=== PATIENT | female | born 1995 | race Caucasian/White ===

== ENCOUNTER 2016-12-18 06:55 | Inpatient (IN) | payer BC ==
[~2016-12-18] VITALS: Ht 157.5 cm; Wt 79.5 kg
[2016-12-18 07:17] VITALS: BP 136/61; PULSE 115; RESP 19; Ht 157.5 cm; Wt 79.5 kg
--- NOTE | 2016-12-18 07:17 | TRIAGE ---
OB Triage Datetime Report Generated by CPN: 12/18/2016 07:17 Datetime: 12/18/2016 07:16 Assessment Type: Triage Maternal Assessment Level of Consciousness: Fully Conscious DTR's/Clonus: DTRs 2+; No Clonus Headache: Denies Blurred Vision: No Respiratory Effort: Unlabored; Regular Rhythm; Equal Expansion Breath Sounds, Left: Clear and Equal Breath Sounds, Right: Clear and Equal Nausea/Vomiting: Denies RUQ Epigastric Pain: Denies Lower Extremities Edema: None Degree: None Upper Extremities Edema: None Degree: None Facial Edema: None Fall Risk Assessment History of Falling: (0) No Secondary Diagnosis: (0) No Ambulatory Aid: (0) Bedrest/Nurse Assist IV Therapy: (0) No Gait: (0) Normal/Bedrest/Immobile Mental Status: (0) Oriented to Own Ability Fall Score: 0 Fall Risk Score Definition: No Risk: No action required Datetime: 12/18/2016 07:15 EGA: 40.4 Datetime: 12/18/2016 06:55 Time of Arrival: 12/18/2016 06:55 Arrived By: Ambulatory Arrived From: Home Chief Complaint: PT CAME IN C/O SROM AT 2330 THIS AM AND UC'S Movement: Present Contractions: Occasional Rupture of Membranes: Ruptured Vaginal Bleeding: None Vaginal Discharge: Denies Recent Sexual Intercouse: Denies Abdominal Trauma: Not Applicable Patient Complaints: Contractions Additional Patient Complaints: NONE Initial Plan: MONITOR AND VE
--- NOTE | 2016-12-18 08:07 | RADRPT ---
PROCEDURE: US OB. CLINICAL INDICATION: Labor TECHNIQUE: Multiple sonographic images of the pelvis were obtained. Transabdominal imaging only w as performed. The images were reviewed on a PACS workstation. COMPARISON: No prior studies are available for comparison. FINDINGS: There is a single live intrauterine gestation. Cardiac activity is present with 166 beats per minut e. position is cephalic. Measurements were made in order to determine age. The results are as follows: BPD = 8.92 cm HC = 32.35 cm AC = 34.05 cm FL = 6.76 cm. Estimated gestational age of approximately 36 weeks 3 days. The estimated date of delivery is 01/12/2017. The EFW = 3043 g, 7.7 %ile. The placenta is left lateral. There is no evidence for an abruption or placenta previa. There are no adnexal masses. IMPRESSION: 1. Single live intrauterine gestation of approximately 36 weeks 3 days, by ultrasound criteria. 2. The estimated date of delivery is 01/12/2017. 3. The estimated weight is 3043 g, 7.7 %ile. RPTAT: HH .Mica Crandall MD, Date Time Electronically viewed and signed by .Mica Crandall MD, on 12/18/2016 08:06 .G/
[2016-12-18] MEDS ORDERED: LACTATED RINGER'S 1,000 ML IV PRN (08:10)
[2016-12-18 08:20] LABS: ADD SCAN DIFF NO
[2016-12-18 08:25] LABS: BASOPHIL # 0.1 10^3/ul (0.0-0.1); BASOPHILS % 0.3 % (0.0-2.0); EOSINOPHILS # 0.3 10^3/ul (0.0-0.5); EOSINOPHILS % 1.7 % (0.0-7.0); HEMOGLOBIN 12.9 g/dl (12.0-16.0); LYMPHOCYTES # 2.4 10^3/ul (0.8-2.9); LYMPHOCYTES % 16.1 % (15.0-51.0); MEAN CORPUSCULAR HEMOGLOBIN 30.1 pg (29.0-33.0); MEAN CORPUSCULAR HGB CONC 33.9 g/dl (32.0-37.0); MEAN CORPUSCULAR VOLUME 88.6 fl (82.0-101.0); MEAN PLATELET VOLUME 9.9 fl (7.4-10.4); MONOCYTE # 0.8 10^3/ul (0.3-0.9); MONOCYTES % 5.4 % (0.0-11.0); NEUTROPHIL # 11.2 10^3/ul (1.6-7.5); NEUTROPHILS % 75.2 % (39.0-77.0); PLATELET COUNT 379 10^3/UL (140-415); RED BLOOD COUNT 4.29 10^6/ul (4.20-5.40); RED CELL DISTRIBUTION WIDTH 14.2 % (11.5-14.5); WHITE BLOOD COUNT 14.9 10^3/ul (4.8-10.8)
[2016-12-18] MEDS: LACTATED RINGER'S 1,000 ML IV SCH ×3 (08:29→21:00)
[2016-12-18] MEDS ORDERED: LIDOCAINE 1% (MPF) 30 ML INJ INJ PRN (08:30)
[2016-12-18] MEDS ORDERED: BUTORPHANOL 2 MG INJ IV PRN (08:30)
[2016-12-18] MEDS ORDERED: AMPICILLIN 2 GM/NS (PMX) 100 ML IV ONE ×2 (08:30→21:00)
[2016-12-18] MEDS ORDERED: METHYLERGONOVINE 0.2 MG INJ IM PRN (08:30)
[2016-12-18] MEDS ORDERED: OXYTOCIN 30 UNITS/LR 500 ML IV PRN (08:30)
[2016-12-18] MEDS ORDERED: IBUPROFEN 600 MG TAB PO PRN (08:30)
[2016-12-18] MEDS ORDERED: CARBOPROST 250 MCG INJ IM PRN (08:30)
[2016-12-18] MEDS ORDERED: MISOPROSTOL 200 MCG TAB PR PRN (08:30)
[2016-12-18] MEDS ORDERED: OXYTOCIN 30 UNITS/LR 500 ML IV SCH ×3 (08:30→09:30)
[2016-12-18 08:40] LABS: INR 0.87; PROTIME 11.8 Sec (12.2-14.2); PT RATIO 0.9
[2016-12-18 08:41] LABS: PARTIAL THROMBOPLASTIN TIME 26.3 Sec (25.0-35.0)
--- NOTE | 2016-12-18 10:10 | PREOPHP ---
DATE OF ADMISSION: 12/18/2016 HISTORY OF PRESENT ILLNESS: Ms. Kalina Elkins is a 21-year-old 1, para 0, EDC 12/14/2016 in trauterine at 40 weeks and 4 days gestational age, presented to triage complaining of rupt ure of membranes since 11:00 last night. She denies any vaginal bleeding. Her care took marysol harrington at [facility]. MEDICAL HISTORY: None. MEDICATIONS: vitamins. PAST SURGICAL HISTORY: None. OBSTETRIC HISTORY: Primigravid. GYNECOLOGIC HISTORY: 12, regular 3 to 4 days. Denies any sexually transmitted disease. Sexually a ctive with 1 partner. SOCIAL HISTORY: Denies any smoking, drugs or alcohol. FAMILY HISTORY: None. PHYSICAL EXAMINATION: HEENT: Within normal. LUNGS: CTA bilateral. CARDIOVASCULAR: S1, S2, regular rhythm. ABDOMEN: Gravid, nontender. EXTREMITIES: Negative edema. No calf tenderness. PELVIC: Vaginal exam 270 -3. heart tracing category 1, toco, regular contractions. ASSESSMENT: Intrauterine at term in labor with spontaneous rupture of membrane. PLAN: Ultrasound for estimated weight and consider Pitocin as needed. Dictated By: LESLIE RODRÍGUEZ/TIFFANIE Conf#: [id number] DID#: [id number]
[2016-12-18] MEDS ORDERED: AMPICILLIN 1 GM/NS (PMX) 50 ML IV SCH (11:30)
[2016-12-18] MEDS ORDERED: FENTAnyl 2MCG/ML-ROPIV 0.2% 100 ML ONE (19:40)
[2016-12-18] MEDS ORDERED: ESMOLOL 10 ML ONE (19:51)
[2016-12-18] MEDS ORDERED: PHENYLephrine (100 MCG/ML) 5ML SYG ONE (19:52)
[2016-12-18] MEDS ORDERED: NALOXONE (0.4 MG/ML) INJ IV PRN (20:30)
[2016-12-18] MEDS ORDERED: FENTAnyl 2MCG/ML-ROPIV 0.2% 100 ML BAG EPI SCH (20:30)
[2016-12-19] MEDS: AMPICILLIN 1 GM/NS (PMX) 50 ML IV SCH ×2 (01:34→05:52)
[2016-12-19] MEDS: LACTATED RINGER'S 1,000 ML IV SCH ×2 (02:30→05:22)
--- NOTE | 2016-12-19 07:51 | LDN ---
Date/Time of Note Date/Time of Note DATE: 12/19/16 TIME: 07:50 Delivery Summary Placenta Delivered: Spontaneously Meconium: Thick Perineum intact?: Yes Perineal laceration repair: right labia minora laceration repair with 3-0 chromic Anesthesia type: Epidural Estimated blood loss: 200 Sponge & Needle done & correct: Yes All needle counts correct: Yes Any foreign bodies felt in the: No Problems: Delivery Information Sex Infant Sex: male Apgars 1 Minute: 8 5 Minute: 9 Suctioning Nose & mouth suctioned at ralph: No Delee suction performed: No Umbilical Cord Umbilical cord with: 3 Vessels Cord Blood was obtained: Yes LESLIE MCCRAY MD Dec 19, 2016 07:51
[2016-12-19] MEDS ORDERED: CARBOPROST 250 MCG INJ IM PRN (08:00)
[2016-12-19] MEDS ORDERED: MISOPROSTOL 200 MCG TAB PR PRN (08:00)
[2016-12-19] MEDS ORDERED: WITCH HAZEL/GLYCERIN PAD PR PRN (08:00)
[2016-12-19] MEDS ORDERED: OXYTOCIN 30 UNITS/LR 500 ML IV PRN (08:00)
[2016-12-19] MEDS ORDERED: METHYLERGONOVINE 0.2 MG INJ IM PRN (08:00)
[2016-12-19] MEDS ORDERED: DIBUCAINE 1% 30 GM OINT PR PRN (08:00)
[2016-12-19] MEDS ORDERED: LANOLIN 7 GM TUBE TOP PRN (08:00)
[2016-12-19] MEDS ORDERED: BENZOCAINE 20% 56 ML SPRAY TOP PRN (08:00)
[2016-12-19] MEDS ORDERED: OXYCODONE/ASPIRIN (4.88/325) TAB PO PRN ×2 (08:00)
--- NOTE | 2016-12-19 08:35 | DELSUM ---
Delivery Summary A-C Datetime Report Generated by CPN: 12/19/2016 08:35 DELIVERY PERSONNEL Tooth Cutter: Niharika Gregoria MATERNAL INFORMATION Delivery Anesthesia: Epidural Medications in Delivery: 30 UNITS PITOCIN IN 500 ML LR Estimated Blood Loss (ml): 200 Placenta Cultured: No Maternal Complications: None LABOR SUMMARY EDC: 12/14/2016 00:00 No. Babies in Womb: 1 Attempted: No Labor Anesthesia: Epidural LABOR INFORMATION Reason for Induction: Not Applicable Onset of Labor: 12/18/2016 06:00 Complete Dilatation: 12/19/2016 06:52 Oxytocin: Augmentation Group B Beta Strep: Negative Antibiotics # of Doses: 3 Antibiotics Time of Last Dose: 12/19/2016 05:52 Steroids Given: None Reason Steroids Not Administered: Not Applicable MEMBRANES Membranes Rupture Method: Spontaneous Membranes Rupture Method: Spontaneous Membranes Rupture Method: Spontaneous Rupture of Membranes: 12/17/2016 23:30 Rupture of Membranes: 12/17/2016 23:30 Length of Rupture (hr): 32.13 Length of Rupture (hr): 32.13 Amniotic Fluid Color: Light Meconium Amniotic Fluid Color: Clear Amniotic Fluid Color: Clear Amniotic Fluid Amount: Small Amniotic Fluid Amount: Small Amniotic Fluid Odor: None Amniotic Fluid Odor: None STAGES OF LABOR Stage 1 hr: 24 Stage 1 min: 52 Stage 2 hr: 0 Stage 2 min: 46 Stage 3 hr: 0 Stage 3 min: 2 Total Time in Labor hr: 25 Total Time in Labor min: 40 VAGINAL DELIVERY Episiotomy: None Laceration Extension: N/A Laceration Type: None Other Laceration: MINOR LABIAL ABRASION Laceration Repair: Yes Initial Vag Sponge Count: 20 Final Vag Sponge Count: 20 Initial Vag Sharps Count: 1 Final Vag Sharps Count: 1 Sponge Count Correct: Yes Sharps Count Correct: Yes BABY A INFORMATION Infant Delivery Date/Time: 12/19/2016 07:38 Method of Delivery: Vaginal Born in Route : No : N/A Forceps: N/A Vacuum Extraction: N/A Shoulder Dystocia : N/A SHOULDER DYSTOCIA BABY A Delivery Date/Time: 12/19/2016 07:38 PRESENTATION/POSITION BABY A Presentation: Cephalic Presentation: Cephalic Presentation: Cephalic Presentation: Cephalic Cephalic Presentation: Vertex Vertex Position: Right Occipital Anterior Breech Presentation: N/A PLACENTA INFORMATION BABY A Placenta Delivery Time : 12/19/2016 07:40 Placenta Method of Delivery: Spontaneous Placenta Status: Delivered SCORES BABY A Heart Rate 1 min: >100 bpm Resp Effort 1 min: Good Cry Reflex Irritability 1 min: Cough/Sneeze/Pulls Away Muscle Tone 1 min: Active Motion Color 1 min: Blue/Pale SCORE 1 MIN: 8 Heart Rate 5 min: >100 bpm Resp Effort 5 min: Good Cry Reflex Irritability 5 min: Cough/Sneeze/Pulls Away Muscle Tone 5 min: Active Motion Color 5 min: Body [place], Extremit Blue SCORE 5 MIN: 9 INFORMATION BABY A Gestational Age at Delivery: 40.5 Gestational Status: Full Term- 39- 40.6 Weeks Outcome : Liveborn Infant Condition : Stable Sex: Male IDENTIFICATION/MEDS BABY A ID Band Number: [id number] ID Band Location: Right Leg; Left Arm Sensor Applied: Yes Sensor Number: [id number] Sensor Location : Cord Clamp Vitamin K Given : Not Given Erythromycin Given: Not Given WEIGHT/LENGTH BABY A Birthweight (gm): 2965 Weight (lb): 6 Weight (oz): 9 Infant Length (in): 19.25 Infant Length (cm): 48.90 CORD INFORMATION BABY A No. Cord Vessels: 3 Nuchal Cord : N/A Cord Blood Taken: Yes Infant Suction: Mouth; Nose ASSESSMENT BABY A Infant Complications: Meconium Physical Findings at Delivery: Molding of the Head; Other Physical Findings- Other: BLUISH BIRTHMARK ON LEFT HAND Infant Respirations: Appears Normal Filenet P8 Developer/ALS Called : No Care By: Rachele KHAN Transferred To: Remains with Mother
[2016-12-19] MEDS ORDERED: OXYTOCIN 30 UNITS/LR 500 ML IV SCH (09:00)
[2016-12-19 10:25] VITALS: BP 121/73; PULSE 65; RESP 19
[2016-12-19 12:00] VITALS: BP 119/60; PULSE 87; RESP 18
[2016-12-19] MEDS: LACTATED RINGER'S 1,000 ML IV* SCH ×3 (12:03→23:49)
[2016-12-19] MEDS: IBUPROFEN 600 MG TAB PO SCH ×3 (12:03→23:49)
[2016-12-19 15:40] VITALS: BP 106/61; PULSE 91; RESP 18
[2016-12-19 20:00] VITALS: BP 105/54; PULSE 72; RESP 18
[2016-12-20] VITALS: BP 108/62; PULSE 86; RESP 18
[2016-12-20 04:00] VITALS: BP 117/65; PULSE 85; RESP 20
[2016-12-20] MEDS: IBUPROFEN 600 MG TAB PO SCH ×3 (05:37→18:04)
[2016-12-20] MEDS: LACTATED RINGER'S 1,000 ML IV* SCH (07:51)
[2016-12-20 08:00] VITALS: BP 115/75; PULSE 81; RESP 18
[2016-12-20 08:05] LABS: ADD SCAN DIFF NO
[2016-12-20 08:42] LABS: BASOPHIL # 0.1 10^3/ul (0.0-0.1); BASOPHILS % 0.2 % (0.0-2.0); EOSINOPHILS # 0.4 10^3/ul (0.0-0.5); EOSINOPHILS % 1.8 % (0.0-7.0); HEMATOCRIT 31.6 % (37.0-47.0); HEMOGLOBIN 10.2 g/dl (12.0-16.0); LYMPHOCYTES # 3.5 10^3/ul (0.8-2.9); LYMPHOCYTES % 17.1 % (15.0-51.0); MEAN CORPUSCULAR HEMOGLOBIN 29.4 pg (29.0-33.0); MEAN CORPUSCULAR HGB CONC 32.3 g/dl (32.0-37.0); MEAN CORPUSCULAR VOLUME 91.1 fl (82.0-101.0); MEAN PLATELET VOLUME 9.7 fl (7.4-10.4); MONOCYTE # 1.1 10^3/ul (0.3-0.9); MONOCYTES % 5.3 % (0.0-11.0); NEUTROPHIL # 15.3 10^3/ul (1.6-7.5); NEUTROPHILS % 74.5 % (39.0-77.0); PLATELET COUNT 306 10^3/UL (140-415); RED BLOOD COUNT 3.47 10^6/ul (4.20-5.40); RED CELL DISTRIBUTION WIDTH 14.9 % (11.5-14.5); WHITE BLOOD COUNT 20.6 10^3/ul (4.8-10.8)
--- NOTE | 2016-12-20 12:37 | QN ---
Documentation Comment attending note PPD 1 patient seen and evaluated no complaints vs stable afebrile ab soft nt uterine fundus below umbillicus extremity no edema no calf tenderness a/ s/p vaginal delivery PPD 1 stable elevated wbc p/ repeat cbc in am LESLIE MCCRAY MD Dec 20, 2016 12:37
[2016-12-20 16:00] VITALS: BP 119/80; PULSE 70; RESP 18
[2016-12-20 20:15] VITALS: BP 114/71; PULSE 77; RESP 20
[2016-12-21] MEDS: IBUPROFEN 600 MG TAB PO SCH ×4 (00:19→17:26)
[2016-12-21 04:07] VITALS: BP 119/69; PULSE 70; RESP 18
[2016-12-21 07:55] LABS: ADD SCAN DIFF NO
[2016-12-21 07:58] LABS: BASOPHIL # 0.1 10^3/ul (0.0-0.1); BASOPHILS % 0.4 % (0.0-2.0); EOSINOPHILS # 0.5 10^3/ul (0.0-0.5); EOSINOPHILS % 3.7 % (0.0-7.0); HEMATOCRIT 33.3 % (37.0-47.0); HEMOGLOBIN 11.1 g/dl (12.0-16.0); LYMPHOCYTES # 3.7 10^3/ul (0.8-2.9); LYMPHOCYTES % 28.6 % (15.0-51.0); MEAN CORPUSCULAR HEMOGLOBIN 29.8 pg (29.0-33.0); MEAN CORPUSCULAR HGB CONC 33.3 g/dl (32.0-37.0); MEAN CORPUSCULAR VOLUME 89.5 fl (82.0-101.0); MEAN PLATELET VOLUME 9.4 fl (7.4-10.4); MONOCYTE # 0.7 10^3/ul (0.3-0.9); MONOCYTES % 5.1 % (0.0-11.0); NEUTROPHIL # 7.9 10^3/ul (1.6-7.5); NEUTROPHILS % 61.3 % (39.0-77.0); PLATELET COUNT 313 10^3/UL (140-415); RED BLOOD COUNT 3.72 10^6/ul (4.20-5.40); RED CELL DISTRIBUTION WIDTH 14.4 % (11.5-14.5); WHITE BLOOD COUNT 12.9 10^3/ul (4.8-10.8)
[2016-12-21 08:15] VITALS: BP 119/54; PULSE 83; RESP 18
--- NOTE | 2016-12-21 09:29 | PD.PPDC ---
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
--- NOTE | 2016-12-21 11:59 | DS ---
DATE OF ADMISSION: 12/18/2016 DATE OF DISCHARGE: 12/21/2016 PRIMARY DIAGNOSIS: A 21-year-old 1, para 0, intrauterine at term in labor. PROCEDURE: Normal spontaneous vaginal delivery. CONDITION ON DISCHARGE: Stable. ACTIVITY: None per vagina. No heavy lifting x6 weeks. DIET: Regular. MEDICATIONS ON DISCHARGE Motrin. DISCHARGE SUMMARY: A 21-year-old 1, para 1, status post normal spontaneous vaginal delivery on 12/19/2016. She had a viable male, Apgars 8 and 9, respectively at 1 and 5 minutes. Uneventful day 1 and 2. She will be discharged on day 2. She is ambulating, tolerating diet, positive flatulence, positive bowel movement. She will follow up in the office in 3 weeks fo r /postop care. Dictated By: LESLIE RODRÍGUEZ/TIFFANIE Conf#: [id number] DID#: [id number]
[2016-12-21 16:05] VITALS: BP 118/56; RESP 18
[2016-12-21 16:42] VITALS: BP 116/60; RESP 18
== END 2016-12-21 17:45 | disposition home or self-care (01) | DRG 775 ==
LOC: OBT 06:55 → L-D 06:55 → OBT 07:11 → L-D 07:11 → PP1 12-19 10:12
PROVIDERS: ADMIT Obstetrics & Gynecology; ATTEND Obstetrics & Gynecology
PROC: 10E0XZZ Delivery of Products of Conception, External Approach (ICD-10-PCS; principal; 2016-12-19)
PROC: 0HQ9XZZ Repair Perineum Skin, External Approach (ICD-10-PCS; 2016-12-19)
DX: O48.0 Post-term pregnancy (principal); O70.0 First degree perineal laceration during delivery; Z3A.40 40 weeks gestation of pregnancy; Z37.0 Single live birth
CPT/HCPCS: 62319; 76815; 85025; 85610; 85730; 86592; 86900; 86901; 87340; 99464; G0463; J0290; J2370; J2590; J3010; J7120